=== PATIENT | female | born 1965 | race Caucasian/White ===

== ENCOUNTER 2023-11-24 08:35 | Day surgery (SDC) | payer OTHER ==
[2023-11-24] MEDS ORDERED: fentaNYL citrate 0.05 MG/ML VIAL ONE (09:52)
[2023-11-24] MEDS ORDERED: MIDAZOLAM 2 MG/2 ML VIAL ONE ×3 (09:52→10:44)
[2023-11-24] MEDS ORDERED: LIDOCAINE 2% 100 MG/5 ML UJET TP ONE (10:20)
[2023-11-24] MEDS: MIDAZOLAM 2 MG/2 ML VIAL IVP ONE (10:26)
== END 2023-11-24 12:15 | disposition home or self-care (01) ==
LOC: MDS 08:35 → MMU 08:37 → MDS 12:15
PROVIDERS: ATTEND Internal Medicine Gastroenterology
DX: R19.5 Other fecal abnormalities (principal); K64.9 Unspecified hemorrhoids; R05.3 Chronic cough; Z90.710 Acquired absence of both cervix and uterus; Z98.890 Other specified postprocedural states
CPT/HCPCS: 43235; J2250; 45330; J3010